=== PATIENT | male | born 1940 | race Caucasian/White ===

== ENCOUNTER → 2018-05-12 | Outpatient (CLI) | payer MEDICARE, OTHER ==
[2014-10-28 15:00] VITALS: BP 114/61
[~2018-05-12] MED LIST: ASPI-482 PO; CONTRAST GIVEN. MC PRN; EXEN2VIA SQ; GABA600T2 PO; GLYB-100 PO; HYDR1TAB20 PO; INSU100V13 SQ; IOHEXOL 300 MG/ML 100ML VIAL. IV ONE; LEVO100T5 PO; LOSA100T7 PO; LOVA20TA2 PO; OMEG500C PO; [UNRECOGNIZED DRUG - CODE] PO
--- NOTE | 2018-05-12 11:25 | RAD ---
CT angiography of the abdomen, pelvis, bilateral lower extremities 05/12/2018 INDICATION: Left leg pain. Peripheral arterial disease. COMPARISON STUDY: None available TECHNIQUE: Multidetector CT imaging of the abdomen, pelvis, enlarged ovaries performed following the administration of IV contrast. 3-D reconstructions of the abdominal, pelvic, lower extremity vasculature were created on an independent workstation and reviewed. Findings: Minimal atherosclerotic vascular disease is noted in the descending thoracic aorta. Proximal abdominal aorta is normal in caliber. Celiac artery and superior mesenteric artery are patent. Right renal artery is patent. Left renal artery is patent. Calcified and noncalcified plaque are noted in the infrarenal abdominal aorta without evidence of flow limiting stenosis. No evidence of aortic aneurysm or dissection is seen. The inferior mesenteric artery is patent. No significant aortoiliac stenosis is identified on either side. Right common femoral artery is patent. Right profunda artery is patent. Very mild nonflow limiting stenosis appears to be present in the proximal right SFA. Right popliteal artery is patent. The right anterior tibial artery is occluded proximally. Distal peroneal and posterior tibial are poorly visualized but appear to be patent just to the level of the ankle. Left common femoral artery is mildly calcified but patent. Left profunda artery is patent. Mild nonflow limiting stenosis noted in the proximal left SFA. Mild nonflow limiting stenosis is noted in the adductor canal. Moderate stenosis is seen in popliteal artery just above the knee. High bifurcation of the left anterior tibial artery is noted which appears to be occluded evaluation of the tibial vessels below the proximal legs limited secondary to contrast bolus timing. The peroneal and posterior tibial arteries are proximally are patent to the mid leg. Nonvascular findings: Visualized lung bases demonstrate no acute abnormality. Small hiatal hernia is noted. The solid viscera of the abdomen demonstrate no acute normality. No bowel obstruction is seen. Bladder is grossly unremarkable. The appendix is unremarkable. Mild sigmoid colonic diverticulosis is noted without evidence of diverticulitis. Mild enlargement of the prostate is present. No acute osseous abnormalities are identified. Degenerative changes of the lumbar spine noted. IMPRESSION: 1. Relatively mild diffuse atherosclerotic vascular disease 2. No significant aortoiliac disease is identified. 3. Moderate narrowing of the left popliteal artery. No other significant femoral popliteal stenosis is identified. 4. Limited evaluation of arteries below the knee. Anterior tibial arteries appear to be occluded bilaterally CT DOSING PQRS STATEMENT: One or more of the following individualized dose reduction techniques were utilized for this examination: 1. Automated exposure control 2. Adjustment of the mA and/or kV according to patient size 3. Use of iterative reconstruction technique Electronically signed by: Yair Albarado MD (05/12/2018 11:22 AM) [id number]
== END | disposition home or self-care (01) ==
LOC: CT 08:32
PROVIDERS: ATTEND Family Medicine
DX: I70.292 Other atherosclerosis of native arteries of extremities, left leg (principal); I74.3 Embolism and thrombosis of arteries of the lower extremities; I10 Essential (primary) hypertension; E11.9 Type 2 diabetes mellitus without complications; E78.5 Hyperlipidemia, unspecified; E78.00 Pure hypercholesterolemia, unspecified; Z87.891 Personal history of nicotine dependence
CPT/HCPCS: 75635; Q9967

== ENCOUNTER → 2018-05-18 | Outpatient (CLI) | payer MEDICARE, OTHER ==
[2014-10-28 15:00] VITALS: BP 114/61
[~2018-05-18] MED LIST changes: -CONTRAST GIVEN. MC PRN; -IOHEXOL 300 MG/ML 100ML VIAL. IV ONE
--- NOTE | 2018-05-18 12:20 | RAD ---
EXAM: Carotid Doppler sonogram. HISTORY: Carotid bruit. TECHNIQUE: Oreilly scale and color Doppler sonographic evaluation of the neck with spectral waveform analysis was performed and static images are submitted for review. FINDINGS: The peak systolic velocity within the right common carotid artery is 65 cm/sec. The peak systolic velocity within the right internal carotid artery is 100 cm/sec and the end diastolic velocity within the right internal carotid artery is 25 cm/sec. The right ICA/CCA ratio is 1.54. The peak systolic velocity within the left common carotid artery is 104 cm/sec. The peak systolic velocity within the left internal carotid artery is 141 cm/sec and the end diastolic velocity within the left internal carotid artery is 21 cm/sec. The left ICA/CCA ratio is 1.35. There is normal antegrade flow within both vertebral arteries. IMPRESSION: 1. Mildly elevated peak systolic velocity within the left internal carotid artery, suggesting 50-69% stenosis. 2. No additional evidence of hemodynamically significant stenosis. PQRS Compliance Statement - Stenosis calculations for CT, MR and conventional angiography are based upon measurement of the distal ICA diameter in accordance with the NASCET methodology. Stenosis calculations for carotid ultrasound studies are derived from validated velocity criteria which are known to correlate with the NASCET methodology. Electronically signed by: Debra Weller MD (05/18/2018 12:16 PM) [place] [id number]
== END | disposition home or self-care (01) ==
LOC: US 12:14
PROVIDERS: ATTEND Family Medicine
DX: R09.89 Other specified symptoms and signs involving the circulatory and respiratory systems (principal)
CPT/HCPCS: 93880

== ENCOUNTER → 2018-06-23 | Outpatient (CLI) | payer MEDICARE, OTHER ==
[2014-10-28 15:00] VITALS: BP 114/61
[~2018-06-23] MED LIST changes: +BUPIVACAINE MPF 0.5% 10 ML VIAL for KCIC. IM ONE; +IOHEXOL 300 MG/ML 50 ML VIAL. INT ART ONE; +LIDOCAINE 1% Multi-Dose 20 ML VIAL. ID ONE; +methylPREDNISolone ACETATE 40 MG/ML VIAL. INT ART ONE
--- NOTE | 2018-06-23 14:08 | KCIC ---
Therapeutic right hip injection using fluoroscopic guidance dated 06/23/2018: Indication: Right hip pain. hip pain.. Technique: The procedure was explained to the patient as were potential risks. All questions were answered. Informed written consent was obtained. The right hip was prepped and draped in the usual sterile manner. Following administration of local anesthetic, a 22-gauge spinal needle was advanced into the hip joint without difficulty, with care taken to avoid the vascular structures. Stylet was removed and following negative aspiration, a mixture of 5 cc Omnipaque-300, 2 cc (80 mg) Depo-Medrol and 8 cc 0.5% bupivacaine were injected without difficulty. Fluoroscopy demonstrates uniform and satisfactory distribution of the injection through the hip. The needle was removed. There was good hemostasis at the injection site. The patient left in stable condition without immediate complication. The patient was given postprocedural instructions, instructed to contact us or the emergency room if there are any complications. 33 seconds fluoroscopic time. One image. Impression: Successful right hip therapeutic injection. Electronically signed by: Humberto Reid MD (06/23/2018 2:05 PM) [email or web address]
--- NOTE | 2018-06-23 14:09 | KCIC ---
Single view pelvis and two-view right hip dated 06/23/2018. CLINICAL INDICATION: Pain. FINDINGS: Single AP view pelvis shows normal bony alignment. No displaced fracture. Pelvic ring is intact. Mild hypertrophic change of the bilateral hip joint with outward convex deformity of the bilateral femoral head/neck junction, raising the question of femoroacetabular impingement. Spondylotic changes of the lower lumbar spine, incompletely evaluated. Two-view right hip show normal bony alignment. No displaced fracture. No acute osseous or articular abnormality. No periostitis or bone destruction. IMPRESSION: 1. No acute radiographic abnormality. 2. Degenerative changes as described above. Electronically signed by: Humberto Reid MD (06/23/2018 2:06 PM) [id number]
== END | disposition home or self-care (01) ==
LOC: KCIC 12:35
PROVIDERS: ATTEND Orthopaedic Surgery Sports Medicine
DX: M16.11 Unilateral primary osteoarthritis, right hip (principal); J44.9 Chronic obstructive pulmonary disease, unspecified; E11.9 Type 2 diabetes mellitus without complications; Z79.4 Long term (current) use of insulin; G89.29 Other chronic pain; Z79.82 Long term (current) use of aspirin; Z79.899 Other long term (current) drug therapy
CPT/HCPCS: 20610; 73502; 77002; J1030; Q9967

== ENCOUNTER → 2019-08-22 | Outpatient (CLI) | payer MEDICARE ==
[2014-10-28 15:00] VITALS: BP 114/61
[~2019-08-22] MED LIST changes: -BUPIVACAINE MPF 0.5% 10 ML VIAL for KCIC. IM ONE; -GABA600T2 PO; +GABA600T7 PO; -GLYB-100 PO; +GLYB1TAB16 PO; +GLYB1TAB18 PO; -IOHEXOL 300 MG/ML 50 ML VIAL. INT ART ONE; -LIDOCAINE 1% Multi-Dose 20 ML VIAL. ID ONE; +LOSA100T14 PO; -LOSA100T7 PO; -[UNRECOGNIZED DRUG - CODE] PO; -methylPREDNISolone ACETATE 40 MG/ML VIAL. INT ART ONE
--- NOTE | 2019-08-22 12:33 | RAD ---
EXAM: Lower extremity arterial Doppler sonogram with ankle-brachial indices (NICOLASA). HISTORY: Pain. Cramping. TECHNIQUE: Doppler sonographic evaluation of the lower extremities was performed and pressure readings were assessed. FINDINGS: Right brachial pressure: 129 mmHg Left brachial pressure: 123 mmHg Right ankle pressure (posterior tibial artery): 132 mmHg Right ankle pressure (dorsalis pedis artery): 152 mmHg Right NICOLASA: 1.17 Left ankle pressure (posterior tibial artery): 176 mmHg Left ankle pressure (dorsalis pedis artery): 155 mmHg Left NICOLASA: 1.36 There are biphasic waveforms throughout the bilateral posterior tibial and dorsalis pedis arteries. IMPRESSION: 1. Upper limits of normal left NICOLASA. This is within near limits to suggest vessel hardening due to atherosclerotic plaque. 2. Normal right NICOLASA. Electronically signed by: Debra Weller MD (08/22/2019 12:30 PM) [place] [id number]
== END | disposition home or self-care (01) ==
LOC: US 10:23
PROVIDERS: ATTEND Family Medicine
DX: R25.2 Cramp and spasm (principal); M79.604 Pain in right leg; M79.605 Pain in left leg
CPT/HCPCS: 93922

== ENCOUNTER → 2019-09-24 | Outpatient (CLI) | payer MEDICARE ==
[2014-10-28 15:00] VITALS: BP 114/61
--- NOTE | 2019-09-24 13:50 | CARD ---
MR#: [id number] Date of Study: 09/24/2019 Ordering Physician: NATHALY SMITH, Referring Physician: NATHALY SMITH, Tech: Anna Mclain [facility] APPROVED REPORT EXAM: Two-dimensional and M-mode echocardiogram with Doppler and color Doppler. Other Information Quality : GoodHR: 61bpm Rhythm : NSR INDICATION Aortic regurgitation. Hx: HTN, HLP, DM. 2D DIMENSIONS RVDd3.1 (2.9-3.5cm)IVSd1.3 (0.7-1.1cm) Aortic Root(2D)4.0 (2.0-3.7cm)LVDd5.2 (3.9-5.9cm) LVOT Diameter2.1 (1.8-2.4cm)PWd1.3 (0.7-1.1cm) LVDs3.7 (2.5-4.0cm)FS (%) 27.9 % SV68.0 mlLVEF(%)53.6 (>50%) Aortic Valve AoV Peak Rashaun.125.0cm/Jacek Peak GR.6.3mmHg LVOT Peak Rashaun.76.9cm/sAVA (VMAX)2.16cm2 AI P 1/2 [id number] Mitral Valve MV E Zpuuedph37.5cm/sMV DECEL [id number] MV A Eklquvks17.0cm/sE/A Ratio1.1 MV A [id number] Pulmonary Valve PV Peak Igjydutx666.8cm/s Pulmonary Vein S1 Wuiifjgf67.0cm/sD2 Xkuowziv74.0cm/s LEFT VENTRICLE The left ventricle is normal size. There is mild left ventricular hypertrophy. Moderate proximal sept al hypertrophy. The left ventricular systolic function is normal. The Ejection Fraction is 55%. There is normal LV segmental wall motion. Transmitral Doppler flow pattern is Grade II-pseudonormal fillin g dynamics. RIGHT VENTRICLE The right ventricle is normal size. There is normal right ventricular wall thickness. The right ventr icular systolic function is normal. ATRIA The left atrium is mildly dilated. The right atrium size is normal. The interatrial septum is intact with no evidence for an atrial septal defect or patent foramen ovale as noted on 2-D or Doppler imagi ng. AORTIC VALVE The aortic valve is normal in structure and function. Leaflets are thickened and calcified but open w ell. Mild to moderate aortic regurgitation. No aortic valvular stenosis. MITRAL VALVE The mitral valve is normal in structure and function. Leaflets are thickened. Mild annular calcificat ion. There is no mitral valve stenosis. Mild mitral regurgitation. TRICUSPID VALVE The tricuspid valve is normal in structure and function. No tricuspid valve regurgitation noted. Unab le to assess PA pressures. PULMONIC VALVE The pulmonary valve is normal in structure and function. Doppler and Color Flow revealed trace pulmon ic valvular regurgitation. GREAT VESSELS The aortic root is dilated at 4.0cm. The ascending aorta is dilated at 4.3cm. The IVC was not well vi sualized. PERICARDIAL EFFUSION There is no evidence of significant pericardial effusion. Critical Notification Critical Value: No <Conclusion> The left ventricular systolic function is normal. The Ejection Fraction is 55%. There is normal LV segmental wall motion. Mild to moderate aortic regurgitation. Mild mitral regurgitation. The ascending aorta is dilated at 4.3cm. There is no evidence of significant pericardial effusion. Signed by : Per Das, Electronically Approved : 09/24/2019 13:49:50
--- NOTE | 2019-09-26 14:40 | RAD ---
MR#: [id number] Date of Study: 09/24/2019 Ordering Physician: NATHALY SMITH, Referring Physician: NATHALY SMITH, Tech: Abdiel Morales MBA, RDMS, RVT, RDCS, RTR APPROVED REPORT Patient Location: OUT-PATIENT Laterality:Bilateral Indications carotid artery disease Doppler Spectral Velocity Analysis Right Left pCCA 61/10 cm/spCCA 68/15 cm/s mCCA 60/12 cm/smCCA 65/16 cm/s dCCA 55/8 cm/sdCCA 61/12 cm/s Bulb 31/8 cm/sBulb 103/19 cm/s ECA 133/ cm/sECA 98/ cm/s pICA 59/14 cm/spICA 115/19 cm/s Dillan 56/12 cm/smICA 90/17 cm/s dICA 67/17 cm/sdICA 64/14 cm/s Vert. 50/ cm/sVert. 28/ cm/s Subcl. 94/ cm/sSubcl. 97/ cm/s ICA/CCA 1.10ICA/CCA 1.69 Findings Grayscale images of the bilateral common carotid, internal and external carotid vessels demonstrates mild intimal hyperplasia without any focal obstruction. Spectral waveforms and color Doppler are within normal limits without any significant velocity decele ration. Overall 0 to less than 50% stenosis. Antegrade vertebral velocities bilaterally. Critical Notification Critical Value: No <Conclusion> 1. No significant carotid occlusive disease bilaterally. Signed by : Wilbert Milian, Electronically Approved : 09/24/2019 15:11:46
== END | disposition home or self-care (01) ==
LOC: ECHO 11:00
PROVIDERS: ATTEND Internal Medicine Cardiovascular Disease
DX: I08.0 Rheumatic disorders of both mitral and aortic valves (principal); I77.3 Arterial fibromuscular dysplasia; I77.9 Disorder of arteries and arterioles, unspecified; I11.9 Hypertensive heart disease without heart failure; E11.9 Type 2 diabetes mellitus without complications; E78.5 Hyperlipidemia, unspecified; E08.42 Diabetes mellitus due to underlying condition with diabetic polyneuropathy; R26.89 Other abnormalities of gait and mobility
CPT/HCPCS: 93306; 93880

== ENCOUNTER → 2019-09-27 | Outpatient (CLI) | payer MEDICARE ==
[2014-10-28 15:00] VITALS: BP 114/61
--- NOTE | 2019-09-27 16:06 | RAD ---
Exam: Ultrasound renal complete Indication: Hematuria Technique: Real-time grayscale and color Doppler images of the kidneys were obtained by the department windscreen fitter. Comparisons: None FINDINGS: Right kidney measures 10.5 x 5.6 x 4.0 cm. No hydronephrosis. Left kidney measures 11.7 x 4.5 x 5.9 cm. No hydronephrosis. There is a 3.2 x 3.5 x 2.7 cm mass within the bladder which demonstrates internal vascularity. Visualized portions of aorta and IVC are unremarkable. IMPRESSION: 1. A 3.5 x 3.2 x 2.7 cm mass within the bladder. Recommend correlation with direct visualization/urologic consultation. 2. No hydronephrosis. Electronically signed by: Makenzie Hamilton MD (09/27/2019 4:04 PM) [id number]
== END | disposition home or self-care (01) ==
LOC: US 14:57
PROVIDERS: ATTEND Family Medicine
DX: N32.89 Other specified disorders of bladder (principal)
CPT/HCPCS: 76770

== ENCOUNTER 2019-11-12 11:54 | Emergency (ER) | payer MEDICARE ==
[~2019-11-12] VITALS: Ht 172.7 cm; Wt 100.0 kg
[2019-11-12] MEDS ORDERED: ASPIRIN CHEWABLE 81 MG TABLET. PO ONE (12:30)
[2019-11-12 12:39] LABS: BASO % 0 % (0-3); EOS # 0.2 x10^3/uL (0.0-0.7); EOS % 2 % (0-3); HEMATOCRIT 39.5 % (39.0-53.0); HEMOGLOBIN 13.4 g/dL (13.0-17.5); LYMPH # 0.8 x10^3/uL (1.0-4.8); LYMPH % 7 % (24-48); MEAN CORPUSCULAR HEMOGLOBIN 31 pg (25-35); MEAN CORPUSCULAR HGB CONC 34 g/dL (31-37); MEAN CORPUSCULAR VOLUME 91 fL (79-100); MONO # 0.8 x10^3/uL (0.0-1.1); MONO % 7 % (0-9); NEUT % 84 % (31-73); PLATELET COUNT 208 x10^3/uL (140-400); RED BLOOD COUNT 4.36 x10^6/uL (4.30-5.70); RED CELL DISTRIBUTION WIDTH 13.5 % (11.5-14.5); WHITE BLOOD COUNT 11.9 x10^3/uL (4.0-11.0)
[2019-11-12 12:46] LABS: CALCIUM 8.9 mg/dL (8.5-10.1); CREATININE 1.1 mg/dL (0.7-1.3); GFR 64.4; POTASSIUM 3.8 mmol/L (3.5-5.1)
[2019-11-12 12:51] LABS: ALBUMIN 3.9 g/dL (3.4-5.0); ALBUMIN/GLOBULIN RATIO 1.2 (1.0-1.7); PROTHROMBIN TIME PATIENT 12.2 SEC (11.7-14.0); TOTAL BILIRUBIN 0.8 mg/dL (0.2-1.0); TOTAL PROTEIN 7.2 g/dL (6.4-8.2)
[2019-11-12 12:56] LABS: BILIRUBIN,URINE NEGATIVE (NEG); CLARITY,URINE CLEAR; COLOR,URINE AMBER; NITRITE,URINE NEGATIVE (NEG); PH,URINE 6.5 (<5.0-8.0); PROTEIN,URINE 30 mg/dL (NEG-TRACE); UROBILINOGEN,URINE 0.2 mg/dL (0.2 mg/dL)
--- NOTE | 2019-11-12 13:09 | RAD ---
EXAM: CHEST PA LATERAL INDICATION: Chest pain. TECHNIQUE: PA and lateral views of the chest COMPARISON: None FINDINGS: The heart size is normal. The great vessels appear unremarkable. There is no hilar or mediastinal mass. Lungs are mildly hypoventilatory but show no focal infiltrates. There is no pleural effusion or pneumothorax. There are no significant osseous abnormalities. IMPRESSION: No active cardiopulmonary disease. Electronically signed by: Randy Cortez MD (11/12/2019 1:06 PM) [id number]
[2019-11-12 13:18] LABS: SQUAMOUS EPITHELIAL CELL,UR FEW /LPF
[2019-11-12 13:23] LABS: BACTERIA,URINE FEW /HPF (0-FEW); RBC,URINE >40 /HPF (0-2); WBC,URINE 20-40 /HPF (0-4)
--- NOTE | 2019-11-12 15:46 | EKG ---
[facility] [address] [place] [address] Test Date: 2019-11-12 Test Time: 12:01:20 Pat Name: DEN YORK Department: Room: Gender: M Front End Developer Designer: : 1940 Requested By: MARY LOU COTO Order Number: [id number] Reading MD: Measurements Intervals Falcon Rate: 83 P: 52 [place]: 352 QRS: 10 QRSD: 96 T: -12 QT: 356 QTc: 419 Interpretive Statements SINUS RHYTHM ATRIAL PREMATURE COMPLEX(ES) PROLONGED [place] INTERVAL QRS(T) CONTOUR ABNORMALITY CONSIDER ANTEROLATERAL MYOCARDIAL DAMAGE CONSIDER INFERIOR MYOCARDIAL DAMAGE ABNORMAL ECG RI6.01 No previous ECG available for comparison
[2019-11-12 15:54] VITALS: BP 118/72
[2019-11-12] MEDS ORDERED: APIX5TAB PO (16:26)
--- NOTE | 2019-11-12 16:26 | PHYS DOC ---
Past Medical History Past Medical History: Diabetes-Type II, High Cholesterol, Hypertension Past Surgical History: Other Additional Past Surgical Histo: back surgery x3 Smoking Status: Never Smoker Alcohol Use: None Drug Use: None Adult General Chief Complaint Chief Complaint: CHEST PAIN HPI HPI Patient is a 79 year old male presenting to the due to chief complaint of chest pain started about 7:00 this morning. Patient states that the pain has been constant. Patient states that has a history of high blood pressure and high cholesterol, diabetes and back pain. Patient denies the pain radiates. Patient states that the pain is in the left side of his chest. Patient also states that there is mild fluttering in his heart beat. Review of Systems Review of Systems Constitutional: Denies fever or chills [] Eyes: Denies change in visual acuity, redness, or eye pain [] HENT: Denies nasal congestion or sore throat [] Respiratory: Denies cough or shortness of breath [] Cardiovascular: Patient complains of chest pain and fluttering in his heart beat GI: Denies abdominal pain, nausea, vomiting, bloody stools or diarrhea [] : Denies dysuria or hematuria [] Neurologic: Denies headache, focal weakness or sensory changes [] All other systems were reviewed and found to be within normal limits, except as documented in this note. Current Medications Current Medications Current Medications Medications (Trade) Dose Ordered Sig/Daniela Start Time Stop Time Status Last Admin Dose Admin Aspirin (Children'S Aspirin) 324 mg 1X ONCE 11/12/19 12:30 11/12/19 12:31 DC 11/12/19 12:55 324 MG Allergies Allergies Allergies Coded Allergies Type Severity Reaction Last Updated Verified No Known Drug Allergies 09/06/13 No Physical Exam Physical Exam Constitutional: Well developed, well nourished, no acute distress, non-toxic appearance. [] HENT: Normocephalic, atraumatic, Eyes: PERRLA, EOMI Neck: Normal range of motion Cardiovascular: Irregular heartbeat Lungs & Thorax: Bilateral breath sounds clear to auscultation [] Abdomen: Bowel sounds normal, soft, no tenderness, no masses, no pulsatile masses. [] Extremities: No tenderness, no cyanosis, no clubbing, ROM intact, no edema. [] Neurologic: Alert and oriented X 3, normal motor function, normal sensory function, no focal deficits noted. [] Current Patient Data Vital Signs Vital Signs Date Time Temp Pulse Resp B/P (MAP) Pulse Ox O2 Delivery O2 Flow Rate FiO2 11/12/19 15:54 84 118/72 (87) 97 Room Air 11/12/19 11:55 100.0 16 100.0 Lab Values Laboratory Tests Test 11/12/19 12:13 11/12/19 12:35 11/12/19 15:12 White Blood Count 11.9 x10^3/uL (4.0-11.0) H Red Blood Count 4.36 x10^6/uL (4.30-5.70) Hemoglobin 13.4 g/dL (13.0-17.5) Hematocrit 39.5 % (39.0-53.0) Mean Corpuscular Volume 91 fL (79-100) Mean Corpuscular Hemoglobin 31 pg (25-35) Mean Corpuscular Hemoglobin Concent 34 g/dL (31-37) Red Cell Distribution Width 13.5 % (11.5-14.5) Platelet Count 208 x10^3/uL (140-400) Neutrophils (%) (Auto) 84 % (31-73) H Lymphocytes (%) (Auto) 7 % (24-48) L Monocytes (%) (Auto) 7 % (0-9) Eosinophils (%) (Auto) 2 % (0-3) Basophils (%) (Auto) 0 % (0-3) Neutrophils # (Auto) 10.0 x10^3/uL (1.8-7.7) H Lymphocytes # (Auto) 0.8 x10^3/uL (1.0-4.8) L Monocytes # (Auto) 0.8 x10^3/uL (0.0-1.1) Eosinophils # (Auto) 0.2 x10^3/uL (0.0-0.7) Basophils # (Auto) 0.0 x10^3/uL (0.0-0.2) Prothrombin Time 12.2 SEC (11.7-14.0) Prothrombin Time INR 0.9 (0.8-1.1) Sodium Level 138 mmol/L (136-145) Potassium Level 3.8 mmol/L (3.5-5.1) Chloride Level 101 mmol/L (98-107) Carbon Dioxide Level 26 mmol/L (21-32) Anion Gap 11 (6-14) Blood Urea Nitrogen 26 mg/dL (8-26) Creatinine 1.1 mg/dL (0.7-1.3) Estimated GFR (Cockcroft-Gault) 64.4 BUN/Creatinine Ratio 24 (6-20) H Glucose Level 132 mg/dL (70-99) H Calcium Level 8.9 mg/dL (8.5-10.1) Total Bilirubin 0.8 mg/dL (0.2-1.0) Aspartate Amino Transferase (AST) 24 U/L (15-37) Alanine Aminotransferase (ALT) 32 U/L (16-63) Alkaline Phosphatase 84 U/L (46-116) Troponin I Quantitative < 0.017 ng/mL (0.000-0.055) < 0.017 ng/mL (0.000-0.055) UB-Cdt-O-Type Natriuretic Peptide 1521 pg/mL (0-449) H Total Protein 7.2 g/dL (6.4-8.2) Albumin 3.9 g/dL (3.4-5.0) Albumin/Globulin Ratio 1.2 (1.0-1.7) Lipase 94 U/L (73-393) Thyroid Stimulating Hormone (TSH) 2.355 uIU/mL (0.358-3.74) Urine Collection Type Unknown Urine Color Delmis Urine Clarity Clear Urine pH 6.5 (<5.0-8.0) Urine Specific [place] 1.025 (1.000-1.030) Urine Protein 30 mg/dL (NEG-TRACE) Urine Glucose (UA) >=1000 mg/dL (NEG) Urine Ketones (Stick) Negative mg/dL (NEG) Urine Blood Large (NEG) Urine Nitrite Negative (NEG) Urine Bilirubin Negative (NEG) Urine Urobilinogen Dipstick 0.2 mg/dL (0.2 mg/dL) Urine Leukocyte Esterase Trace (NEG) Urine RBC >40 /HPF (0-2) Urine WBC 20-40 /HPF (0-4) Urine Squamous Epithelial Cells Few /LPF Urine Bacteria Few /HPF (0-FEW) Laboratory Tests 11/12/19 12:13 Laboratory Tests 11/12/19 12:13 EKG EKG EKG": 11/12/2019 HR: 83 Sinus with PACs Regular intervals Normal axis Nonspecific ST changes Radiology/Procedures Radiology/Procedures [] Impressions: Chest x-ray does not show any acute disease Course & Med Decision Making Course & Med Decision Making Pertinent Labs and Imaging studies reviewed. (See chart for details) EKG shows that patient is in a regular rhythm Labs are within normal limits. Troponin is negative. Repeat troponin is negative as well. I discussed case with cardiology on-call. Recommended patient be started on a course 5 mg twice a day Patient appointment with Dr. Fraire on December 18 at 9 AM. Discussed results and plan of care patient. Patient will follow-up with cardiology as an outpatient. Patient is instructed to follow up with PCP in one to 2 days. Appropriate discharge instructions given to patient to return to the ED or to seek immediate medical evaluation. Patient is instructed to return to the ED if symptoms worsen or if any concerns. Dragon Disclaimer Dragon Disclaimer This electronic medical record was generated, in whole or in part, using a voice recognition dictation system. Departure Departure Impression: Primary Impression: Atrial fibrillation Additional Impression: Chest pain Disposition: 01 HOME, SELF-CARE Condition: GOOD Referrals: Titi FARLEY MD (PCP) PHILIP DEWITT MD Appointment is on December 18 at 9 AM Additional Instructions: Appointment with Dr. Nettles (cardiology) is at 9 AM on December 18. Please also take Eliquis 5mg BID. Scripts Apixaban (ELIQUIS) 5 Mg Tablet 5 MG PO BID for Atrial Fibrillation for 60 Days, #120 TAB Prov: MARY LOU COTO DO 11/12/19 Problem Qualifiers MARY LOU COTO DO Nov 12, 2019 16:26
== END 2019-11-12 16:37 | disposition home or self-care (01) ==
LOC: ER 11:54
DX: I48.91 Unspecified atrial fibrillation (principal); R07.89 Other chest pain; E11.9 Type 2 diabetes mellitus without complications; E78.00 Pure hypercholesterolemia, unspecified; I10 Essential (primary) hypertension; Z98.890 Other specified postprocedural states
CPT/HCPCS: 36415; 71046; 80053; 81001; 83690; 83880; 84443; 84484; 85025; 85610; 93005; 99285

== ENCOUNTER 2020-02-02 06:50 | Emergency (ER) | payer MEDICARE ==
[~2020-02-02] VITALS: Ht 170.2 cm; Wt 95.0 kg
[~2020-02-02 06:50] MED LIST changes: +APIX5TAB PO
[2020-02-02 07:23] VITALS: BP 140/76
[2020-02-02] MEDS ORDERED: TETANUS AND DIPHTHERIA TOX/PF 0.5 ML DISP.SYRIN. VAX IM ONE (07:45)
[2020-02-02] MEDS ORDERED: LEVO500T59 PO (07:49)
--- NOTE | 2020-02-02 07:49 | PHYS DOC ---
Past Medical History Past Medical History: Diabetes-Type II, High Cholesterol, Hypertension, Other Additional Past Medical Histor: BLADDER CA Past Surgical History: Other Additional Past Surgical Histo: back surgery x3 Smoking Status: Never Smoker Alcohol Use: None Drug Use: None General Adult EDM: Chief Complaint: FOOT INJURY PAIN HPI: HPI: Patient is an 79-year-old diabetic who presents after he stepped on a nail. The nail pierced the sole of his shoe and into his right foot. He states it is quite painful. He was unable to pull the nail out of his foot secondary to pain. He is unsure when his last tetanus shot was. He has no other symptoms at this time.] Review of Systems: Review of Systems: Constitutional: Denies fever or chills. [] Eyes: Denies change in visual acuity. [] HENT: Denies nasal congestion or sore throat. [] Respiratory: Denies cough or shortness of breath. [] Cardiovascular: Denies chest pain or edema. [] GI: Denies abdominal pain, nausea, vomiting, bloody stools or diarrhea. [] : Denies dysuria. [] Musculoskeletal: Per HPI [] Integument: Denies rash. [] Neurologic: Denies headache, focal weakness or sensory changes. [] Endocrine: Denies polyuria or polydipsia. [] Lymphatic: Denies swollen glands. [] Psychiatric: Denies depression or anxiety. [] Heart Score: Risk Factors: Risk Factors: DM, Current or recent (<one month) smoker, HTN, HLP, family history of CAD, obesity. Risk Scores: Score 0 - 3: 2.5% MACE over next 6 weeks - Discharge Home Score 4 - 6: 20.3% MACE over next 6 weeks - Admit for Clinical Observation Score 7 - 10: 72.7% MACE over next 6 weeks - Early Invasive Strategies Current Medications: Current Medications Medications (Trade) Dose Ordered Sig/Daniela Start Time Stop Time Status Last Admin Dose Admin Levofloxacin (Levaquin) 500 mg 1X ONCE 02/02/20 07:45 02/02/20 07:46 Tetanus/ Diphtheria Toxoids (Tenivac Syringe) 0.5 ml ONCE ONCE 02/02/20 07:45 02/02/20 07:46 UNV Allergies: Allergies: Allergies Coded Allergies Type Severity Reaction Last Updated Verified No Known Drug Allergies 09/06/13 No Physical Exam: PE: Constitutional: Well developed, well nourished, no acute distress, non-toxic appearance. [] HENT: Normocephalic, atraumatic, bilateral external ears normal, oropharynx moist, no oral exudates, nose normal. [] Eyes: PERRLA, EOMI, conjunctiva normal, no discharge. [] Neck: Normal range of motion, no tenderness, supple, no stridor. [] Cardiovascular:Heart rate regular rhythm, no murmur [] Lungs & Thorax: Bilateral breath sounds clear to auscultation [] Abdomen: Bowel sounds normal, soft, no tenderness, no masses, no pulsatile masses. [] Skin: Warm, dry, no erythema, no rash. [] Back: No tenderness, no CVA tenderness. [] Extremities: Patient has his shoe on a nail through the shoe on the right [] Neurologic: Alert and oriented X 3, normal motor function, normal sensory function, no focal deficits noted. [] Psychologic: Affect normal, judgement normal, mood normal. [] Current Patient Data: Vital Signs: Vital Signs Date Time Temp Pulse Resp B/P (MAP) Pulse Ox O2 Delivery O2 Flow Rate FiO2 02/02/20 07:23 98.0 65 18 140/76 (97) 98 Room Air 98.0 EKG: EKG: [] Radiology/Procedures: Radiology/Procedures: [] Course & Med Decision Making: Course & Med Decision Making Pertinent Labs and Imaging studies reviewed. (See chart for details) [Procedure: Foreign body removal The nail was removed from his foot without difficulty. After the nail was removed the wound was scrubbed with Hibiclens and dressed. The patient was given Levaquin 500 mg by mouth to cover for likely Pseudomonas infection. I spent a great deal of time explaining the seriousness of this injury with the patient and his son. I have encouraged them to keep his wound very clean take all the antibiotics as prescribed and return to the emergency department if there is any signs of infection.] Dragon Disclaimer: Dragon Disclaimer: This electronic medical record was generated, in whole or in part, using a voice recognition dictation system. Departure Departure Impression: Primary Impression: Puncture wound of foot, right Qualified Codes: S91.331A - Puncture wound without foreign body, right foot, initial encounter Disposition: 01 HOME, SELF-CARE Condition: STABLE Referrals: Titi FARLEY MD (PCP) Patient Instructions: Puncture Wound Additional Instructions: As we discussed, wash your foot with soap and water several times daily. Keep this area very clean. It is extremely important that you take your antibiotics as prescribed. Please follow-up with your primary care physician this coming week for recheck. Most importantly, return to the emergency department immediately if there is any sign of infection. Scripts Levofloxacin (LEVAQUIN) 500 Mg Tablet 1 TAB PO DAILY for puncture wound, #10 TAB Prov: GEE ENNIS DO 02/02/20 Justicifation of Admission Dx: Justifications for Admission: Justification of Admission Dx: No GEE ENNIS DO Feb 02, 2020 07:49
[2020-02-02 08:14] LABS: BASO # 0.1 x10^3/uL (0.0-0.2); BASO % 1 % (0-3); EOS # 0.4 x10^3/uL (0.0-0.7); EOS % 6 % (0-3); HEMATOCRIT 39.2 % (39.0-53.0); HEMOGLOBIN 13.4 g/dL (13.0-17.5); LYMPH % 17 % (24-48); MEAN CORPUSCULAR HEMOGLOBIN 31 pg (25-35); MEAN CORPUSCULAR HGB CONC 34 g/dL (31-37); MEAN CORPUSCULAR VOLUME 90 fL (79-100); MONO # 0.6 x10^3/uL (0.0-1.1); MONO % 9 % (0-9); NEUT # 4.1 x10^3/uL (1.8-7.7); NEUT % 67 % (31-73); PLATELET COUNT 176 x10^3/uL (140-400); RED BLOOD COUNT 4.36 x10^6/uL (4.30-5.70); RED CELL DISTRIBUTION WIDTH 13.1 % (11.5-14.5); WHITE BLOOD COUNT 6.2 x10^3/uL (4.0-11.0)
[2020-02-02 08:23] LABS: CALCIUM 8.8 mg/dL (8.5-10.1); CREATININE 1.1 mg/dL (0.7-1.3); GFR 64.4; POTASSIUM 3.6 mmol/L (3.5-5.1)
[2020-02-02 08:29] LABS: ALBUMIN 3.8 g/dL (3.4-5.0); ALBUMIN/GLOBULIN RATIO 1.2 (1.0-1.7); TOTAL BILIRUBIN 0.5 mg/dL (0.2-1.0); TOTAL PROTEIN 7.1 g/dL (6.4-8.2)
== END 2020-02-02 10:00 | disposition home or self-care (01) ==
LOC: ER 06:50
DX: S91.341A Puncture wound with foreign body, right foot, initial encounter (principal); E11.9 Type 2 diabetes mellitus without complications; E78.00 Pure hypercholesterolemia, unspecified; I10 Essential (primary) hypertension; W22.09XA Striking against other stationary object, initial encounter; Y93.89 Activity, other specified; Y92.89 Other specified places as the place of occurrence of the external cause; Y99.8 Other external cause status
CPT/HCPCS: 36415; 80053; 85025; 90471; 90714; 99284

== ENCOUNTER 2021-01-16 07:37 | Emergency (ER) | payer MEDICARE ==
[~2021-01-16] VITALS: Ht 170.2 cm; Wt 90.0 kg
[~2021-01-16 07:37] MED LIST changes: +LEVO500T59 PO
--- NOTE | 2021-01-16 07:55 | PHYS DOC ---
Past Medical History Past Medical History: Diabetes-Type II, High Cholesterol, Hypertension, Other Additional Past Medical Histor: BLADDER CA Past Surgical History: Other Additional Past Surgical Histo: back surgery x3 Smoking Status: Never Smoker Alcohol Use: None Drug Use: None General Adult EDM: Chief Complaint: FOOT INJURY PAIN HPI: HPI: 80-year-old male presented emerge department today with left mccauley injury. He was getting on/off his tractor/lawnmower when he bumped his mccauley into it. Over the past few days he has had a worsening pain in his mccauley on the anterior area where he sustained an abrasion and has started developing some redness. He denies any drainage. He is able to put weight on his lower extremity and is able to walk with mild to moderate pain. It is associated with swelling. tdap up to date. Review of systems negative for vomiting fevers chills chest pain shortness of br eath. All other review of systems negative. Heart Score: C/O Chest Pain: No Risk Factors: Risk Factors: DM, Current or recent (<one month) smoker, HTN, HLP, family history of CAD, obesity. Risk Scores: Score 0 - 3: 2.5% MACE over next 6 weeks - Discharge Home Score 4 - 6: 20.3% MACE over next 6 weeks - Admit for Clinical Observation Score 7 - 10: 72.7% MACE over next 6 weeks - Early Invasive Strategies Allergies: Allergies: Allergies Coded Allergies Type Severity Reaction Last Updated Verified No Known Drug Allergies 09/06/13 No Physical Exam: PE: Constitutional: Well developed, well nourished, no acute distress, non-toxic appearance. [] HENT: Normocephalic, atraumatic, bilateral external ears normal, oropharynx moist, no oral exudates, nose normal. [] Eyes: PERRLA, EOMI, conjunctiva normal, no discharge. [] Neck: Normal range of motion, no tenderness, supple, no stridor. [] Cardiovascular:Heart rate regular rhythm, no murmur [] Lungs & Thorax: Bilateral breath sounds clear to auscultation [] Abdomen: Bowel sounds normal, soft, no tenderness, no masses, no pulsatile masses. [] Skin: Warm, dry, no erythema, no rash. [] Back: No tenderness, no CVA tenderness. [] Extremities: The patient's left lower extremity has 2 healing abrasions on the anterior mccauley approximately between half way down the mccauley to three quarters of the way down the mccauley. Does not involve the ankle joint. There is erythema with mild warmth to touch. No drainage. No fluctuant masses. Nontender in the calf. All of the pain is on the anterior portion of the mccauley. The ankle is nontender with normal range of motion. Nontender medial and lateral malleolar I. Nontender base of the fifth metatarsal. Nontender foot. The remainder the extremities are atraumatic neurovascular intact and nontender with normal range of motion of the joints. Neurologic: Alert and oriented X 3, normal motor function, normal sensory function, no focal deficits noted. [] Psychologic: Affect normal, judgement normal, mood normal. [] EKG: EKG: [] Radiology/Procedures: Radiology/Procedures: [] Course & Med Decision Making: Course & Med Decision Making Pertinent Labs and Imaging studies reviewed. (See chart for details) [] X-rays unremarkable. We will discharge with oral Keflex and hydrocodone to follow-up with PCP in 1 to 2 days. Patient is to return for any worsening redness development of fevers or significant pain. Outpatient MRI recommended in the next 5 to 7 days if this patient's symptoms do not improve significantly. Aida Disclaimer: Aida Disclaimer: This electronic medical record was generated, in whole or in part, using a voice recognition dictation system. Departure Departure Impression: Primary Impression: Cellulitis Disposition: HOME / SELF CARE / HOMELESS Condition: STABLE Referrals: Titi FARLEY MD (PCP) Patient Instructions: Cellulitis Additional Instructions: EMERGENCY DEPARTMENT GENERAL DISCHARGE INSTRUCTIONS Follow-up with your primary physician in 1 to 2 days. Return to the emergency department if you have any new or concerning findings. If your symptoms persist for more than 5 days outpatient MRI of the area is recommended. Thank you for coming to [facility] Emergency Department (ED) today and trusting us with you care. We trust that you had a positive experience in our Emergency Department. If you wish to speak to the department management, you may call the Director at [phone]. Follow up is important in emergency/acute care visits. This condition should be evaluated by your primary care physician and any necessary consulting services for continued management within a few days (1-2) after discharge. Return to the emergency department if you have any new or concerning symptoms including but not limited to fever, chills, nausea, vomiting, intractable pain, any new rashes, chest pain, shortness of breath, uncontrolled bleeding, difficulty breathing, and/or vision loss. 1. Do you have a private Doctor? If you do not have a private doctor, please ask for a resource list of physicians or clinics that may be able to assist you with follow up care. 2. If a lab test or culture has been done and does not come back immediately, your results will be reviewed and you will be notified if you need a change in treatment. 3. Your care today has been supervised by a physician who is specially trained in emergency care. Many problems require more than one evaluation for a complete diagnosis and treatment. We recommend that you schedule your follow up appointment as recommended to ensure complete treatment of you illness or injury. If you are unable to obtain follow up care and continue to have a problem, or if your condition worsens, we recommend that you return to the ED. 4. We are not able to safely determine your condition over the phone nor are we able to give sound medical advice over the phone. For these safety reasons, if you call for medical advice we will ask you to come to the ED for further evaluation. IF YOUR SYMPTOMS WORSEN OR NEW SYMPTOMS DEVELOP, OR YOU HAVE CONCERNS ABOUT YOUR CONDITION; OR IF YOUR CONDITION WORSENS WHILE YOU ARE WAITING FOR YOUR FOLLOW UP APPOINTMENT; EITHER CONTACT YOUR PRIMARY CARE DOCTOR, THE PHYSICIAN WHOSE NAME AND NUMBER YOU WERE GIVEN, OR RETURN TO THE ED IMMEDIATELY. Scripts Hydrocodone Bit/Acetaminophen (HYDROCODONE-APAP 5-325 ) 1 Tab Tablet 1 TAB PO PRN Q8HRS PRN for SEVERE PAIN, #8 TAB 0 Refills Prov: LUIGI PRABHAKAR MD 01/16/21 Cephalexin (KEFLEX) 750 Mg Capsule 1 CAP PO BID for 7 Days, #14 CAP 0 Refills Prov: LUIGI PRABHAKAR MD 01/16/21 LUIGI PRABHAKAR MD Jan 16, 2021 07:55
--- NOTE | 2021-01-16 08:20 | RAD ---
XR LT TIBIA + FIBULA Clinical indications: Reason: LEFT BOB INJURY, REDNESS AND SWELLING MID tibia/fibula. Findings: No acute fracture or dislocation or osteolytic process is evident. No periosteal reaction is seen. IMPRESSION: No acute osseous abnormality is evident. Electronically signed by: Bob Flores MD (01/16/2021 8:18 AM) [id number]
[2021-01-16] MEDS ORDERED: HYDR-2761 PO ×2 (08:27→11:00)
[2021-01-16] MEDS ORDERED: CEPH750C9 PO ×2 (08:27→11:00)
[2021-01-16 09:00] VITALS: BP 132/59
== END 2021-01-16 09:01 | disposition home or self-care (01) ==
LOC: ER 07:37
DX: L03.116 Cellulitis of left lower limb (principal); E11.9 Type 2 diabetes mellitus without complications; E78.00 Pure hypercholesterolemia, unspecified; I10 Essential (primary) hypertension
CPT/HCPCS: 73590; 99283

== ENCOUNTER → 2021-02-19 | Outpatient (CLI) | payer MEDICARE ==
[~2021-02-19] MED LIST changes: +CEPH750C9 PO; +HYDR-2761 PO
--- NOTE | 2021-02-20 11:01 | KCIC ---
XR CERVICAL SPINE 2-3V History: Reason: Neck pain that radiates down back. / Spl. Instructions: Pain since December 2020. / Histo ry: Technique: 3 views cervical spine. Comparison: None. Findings: Normal vertebral body height and alignment. No fracture. Multilevel degenerative disc changes most pr ominent C5-C6 and C6-C7 moderate. Prevertebral soft tissues unremarkable. Normal alignment C1 on C2. Vascular calcifications within the region of the left carotid bifurcation. Impression: 1. Multilevel cervical spondylosis most prominent C5-C6 and C6-C7. Electronically signed by: Vin Lake DO (02/20/2021 10:59 AM) [id number]
== END ==
LOC: KCIC 10:04
PROVIDERS: ATTEND Family Medicine
DX: M47.812 Spondylosis without myelopathy or radiculopathy, cervical region (principal); M50.322 Other cervical disc degeneration at C5-C6 level; M50.323 Other cervical disc degeneration at C6-C7 level; I65.22 Occlusion and stenosis of left carotid artery
CPT/HCPCS: 72040

== ENCOUNTER → 2021-04-07 | Outpatient (CLI) | payer MEDICARE ==
--- NOTE | 2021-04-07 14:18 | CARD ---
MR#: [id number] Date of Study: 04/07/2021 Ordering Physician: NATHALY SMITH, Referring Physician: NATHALY SMITH, Tech: Dominick Segovia [facility] APPROVED REPORT EXAM: Two-dimensional and M-mode echocardiogram with Doppler and color Doppler. Other Information Quality : AverageHR: 62bpm Rhythm : NSR INDICATION Murmur 2D DIMENSIONS Left Atrium(2D)4.4 (1.6-4.0cm)IVSd1.2 (0.7-1.1cm) Aortic Root(2D)3.8 (2.0-3.7cm)LVDd5.0 (3.9-5.9cm) LVOT Diameter2.5 (1.8-2.4cm)PWd1.2 (0.7-1.1cm) LVDs3.0 (2.5-4.0cm)FS (%) 41.0 % SV85.4 mlLVEF(%)71.6 (>50%) Aortic Valve AoV Peak Rashaun.122.2cm/sAoV VTI27.9cm AO Peak GR.6.0mmHgLVOT Peak Rashaun.99.2cm/s LVOT VTI 21.10cmAO Mean GR.3mmHg ANALISA (VMAX)2.64in9XUN (VTI)3.57cm2 AI P 1/2 Hgdo693zw Mitral Valve MV E Niktjaau63.4cm/sMV DECEL JRXC007pi MV A Hgjxuaqn93.3cm/sMV VDF59ec E/A Ratio1.1MVA (PHT)3.81cm2 TDI E/Lateral E'11.5E/Medial E'13.1 Pulmonary Valve PV Peak Rxzwvhxb764.2cm/sPV Peak Grad.4mmHg Tricuspid Valve TR P. Xcqlzwzh326xs/sTR Peak Gr.22mmHg Pulmonary Vein S1 Dbrydpeg21.0cm/sD2 Dgoekhhj76.6cm/s LEFT VENTRICLE The left ventricle is normal size. There is mild concentric left ventricular hypertrophy. The left ve ntricular systolic function is normal and the ejection fraction is within normal range. EF 55% There is normal LV segmental wall motion. Tissue Doppler imaging reveals moderate left ventricular diastoli c dysfunction. No left ventricle thrombus noted on this study. There is no ventricular septal defect visualized. There is no left ventricular aneurysm. There is no mass noted in the left ventricle. RIGHT VENTRICLE The right ventricle is normal size. There is normal right ventricular wall thickness. The right ventr icular systolic function is normal. ATRIA The left atrium is moderately dilated. The right atrium size is normal. The interatrial septum is int act with no evidence for an atrial septal defect or patent foramen ovale as noted on 2-D or Doppler i maging. AORTIC VALVE The aortic valve is mildly sclerotic. Doppler and Color Flow revealed mild aortic regurgitation. Ther e is no significant aortic valvular stenosis. There is no aortic valvular vegetation. MITRAL VALVE The mitral valve is thickened but opens well. Mitral annular calcification is mild to moderate. There is no evidence of mitral valve prolapse. There is no mitral valve stenosis. Doppler and Color-flow r evealed trace to mild mitral regurgitation. TRICUSPID VALVE The tricuspid valve is normal in structure and function. Doppler and Color Flow revealed trace tricus pid regurgitation. There is no tricuspid valve prolapse or vegetation. There is no tricuspid valve st enosis. PULMONIC VALVE Not well seen. Doppler and Color Flow revealed no pulmonic valvular regurgitation. There is no pulmon ic valvular stenosis. GREAT VESSELS The aortic root is mildly dilated. 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 (4.4cm) The IVC is normal in size and collapses >50% with inspiration. PERICARDIAL EFFUSION There is no pleural effusion. There is no evidence of significant pericardial effusion. Critical Notification Critical Value: No <Conclusion> The left ventricular systolic function is normal and the ejection fraction is within normal range. EF 55% There is normal LV segmental wall motion. Doppler and Color Flow revealed mild aortic regurgitation. 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 (4.4cm) Signed by : Wilbert Milian, Electronically Approved : 04/07/2021 14:17:35
== END ==
LOC: ECHO 09:41
PROVIDERS: ATTEND Internal Medicine Cardiovascular Disease
DX: I08.0 Rheumatic disorders of both mitral and aortic valves (principal); R01.1 Cardiac murmur, unspecified
CPT/HCPCS: 93306

== ENCOUNTER → 2021-05-14 | Outpatient (CLI) | payer MEDICARE ==
[~2021-05-14] MED LIST changes: +REGADENOSON 0.4 MG/5 ML DISP.SYRIN. IV ONE
--- NOTE | 2021-05-14 17:26 | RAD ---
MR#: [id number] Date of Study: 05/14/2021 Ordering Physician: NATHALY LARA, Referring Physician: FEDE HERNANDEZ Tech: HERMINIO Clark APPROVED REPORT Test Type: Pharmacological Stress Nurse/Tech: Franky Zuniga RN Test Indications: Chest Pain Cardiac History: HTN, See EMR. Medications: Insulin, See EMR. Medical History: DM, Smoker, See EMR. Resting ECG: SR w/ PAC Resting Heart Rate: 62 bpm Resting Blood Pressure: 129/61mmHg Pretest Chest Pain: No chest pain Nurse/Tech Notes Lungs CTA, Heart tones regular. Consent: The procedure was explained to the patient in lay terms. Informed consent was witnessed. Betito eout was entered into [employer]. History and Stress Test performed by HERMINIO Clark Pharm. Details Pharmacologic stress testing was performed using 0.4mg per 5ml of regadenoson given intravenously ove r 7-10 seconds. Stress Symptoms No chest pain or symptoms. POST EXERCISE Reason for Termination: Infusion complete Max HR: 79 bpm Max Blood Pressure: 138/51mmHg Blood Pressure response to exercise: Normal blood pressure response during stress. Heart Rate response to exercise: WNL Chest Pain: No. Arrhythmia: No. ST Change: No. INTERPRETATION Stress EKG Conclusion: The resting EKG shows a sinus rhythm with nonspecific T wave changes. The stress EKG shows no significant changes from baseline. No EKG evidence of stress-induced ischemia. Imaging Protocol IMAGE PROTOCOL: Rest Tc-99m/stress Tc-99m 1 day Rest: Stress: Viability: Radiopharm.Tc99m JbsnqjsqgLy05l Sestamibi Ryvy44iZa 32mCi Duration 15min. 13min. Img Date 05/14/2021 05/14/2021 Inj-Img Hulz41fpd. 60min. Rest Admin Site:IV - Right WristAdministrator:HERMINIO Clark Stress Admin Site: IV - Right WristAdministrator: HERMINIO Clark STRESS DATA End Diast. Vol.123.0mlLVEDV index BSA61.0ml End Syst. Vol.38.0mlLVESV index BSA19.0ml Myocardial Bqdw511.0gEject. Aptuayln83.0% Stress Scores Regional WT0.00Summed WT2.00 Regional WM0.00Summed WM1.00 LV Perfusion The stress scans showed no significant defects. The rest scans showed no significant defects. Nuclear imaging shows no reversible ischemia or infarct. Wall Motion Left ventricular systolic function is normal with an ejection fraction of 67%. LV Perf. Quant 17 Seg. SSS0.00 17 Seg. SRS3.00 17 Seg. SDS0.00 Stress Defect Extent (% LAD)0.00Rest Defect Extent (% LAD)2.50Rev. Defect Extent (% LAD)0.00 Stress Defect Extent (% LCX) 0.00Rest Defect Extent (% LCX)15.00Rev. Defect Extent (% LCX)0.00 Stress Defect Extent (% RCA)0.00Rest Defect Extent (% RCA)0.00Rev. Defect Extent (% RCA)0.00 Stress Defect Extent (% CIERRA)0.90Rest Defect Extent (% CIERRA)7.00Rev. Defect Extent (% CIERRA)0.00 Conclusion 1. No EKG evidence of stress-induced ischemia. 2. Nuclear imaging shows no reversible ischemia or infarct. 3. Intact LV systolic function with an ejection fraction of 67%. 4. Low risk Lexiscan nuclear stress test. Signed by : Nathaly Lara MD Electronically Approved : 05/14/2021 17:25:40
== END ==
LOC: NM 09:12
PROVIDERS: ATTEND Internal Medicine Cardiovascular Disease
DX: R07.9 Chest pain, unspecified (principal)
CPT/HCPCS: 78452; 93017; A9500; J2785

== ENCOUNTER → 2021-07-31 | Outpatient (CLI) | payer MEDICARE ==
[~2021-07-31] MED LIST changes: -REGADENOSON 0.4 MG/5 ML DISP.SYRIN. IV ONE
--- NOTE | 2021-07-31 13:54 | RAD ---
Site ID: [id number] EXAMINATION: XR CHEST 2V. HISTORY: 80 years Male Reason: EFFUSION RIGHT KNEE. COUGH. COMPARISON: November 12, 2019. Findings: There is interstitial thickening seen with no focal infiltrate this appears to be more prom inent compared to the previous exam. The heart size is mildly enlarged. There is no effusion or pneum othorax. The mediastinum and almita appear unremarkable. Impression: Mild cardiomegaly. There is prominence of interstitial markings which could be on the bas is of mild congestion. Mild atypical infection could be considered. Electronically signed by: Andriy Issa MD (07/31/2021 1:52 PM) [id number]
--- NOTE | 2021-07-31 13:57 | RAD ---
Site ID: [id number] EXAMINATION: XR KNEE 3 VIEWS_RT. HISTORY: 80 years Male Reason: EFFUSION RIGHT KNEE. COUGH. COMPARISON: None. FINDINGS: No fracture, dislocation or radiopaque foreign body. Tiny osteophytes are seen at the joint margin s with no joint space narrowing.. There is no suprapatellar effusion. There is a calcification or fro m possibly an opaque foreign body measuring 2 mm seen in the medial aspect of the catheter suprapatel lar effusion. There is soft tissue thickening anterior to the patellar ligament. The upper aspect of the patella demonstrates a spur at the quadriceps insertion. IMPRESSION: 1. Soft tissue thickening anterior to the patellar tendon. This could be of tendon injury superficial infrapatellar bursitis. 2. A 2 mm focal dense calcification or radiopaque foreign body projecting at the medial aspect of the suprapatellar region and the soft tissues. No joint effusion. Electronically signed by: Andriy Issa MD (07/31/2021 1:55 PM) [id number]
== END ==
LOC: RAD 07:57
PROVIDERS: ATTEND Family Medicine
DX: M25.461 Effusion, right knee (principal); M25.761 Osteophyte, right knee; I51.7 Cardiomegaly
CPT/HCPCS: 71046; 73562